=== PATIENT | male | born 1965 | race Caucasian/White ===

== ENCOUNTER 2025-08-28 13:14 | Inpatient (IN) | payer OTHER, SELFPAY ==
[2025-08-28 13:15] VITALS: BP 130/98; PULSE 102; RESP 18; TEMP 36.6; O2SAT 99; BMI 31.8
--- NOTE | 2025-08-28 15:17 | EDS_ITS ---
HPI History of Present Illness Chief Complaint: Substance Abuse Informant: patient Onset/Context/Timing Onset: Today Context: Gradual Onset Timing: Continuous Worsened by: Nothing Relieved by: Nothing Associated Symptoms Associated Symptoms: Negative for vomiting*, diarrhea*, fever*, rash*, seizure, tremor, palpatations, change in mental status, suicidal ideation or homicidal ideation Narrative Narrative: Patient presents requesting detox from alcohol. Patient states he drinks approximately 1 pint of vodka per day. Patient states his last drink was earlier today. Patient states he did drink a pint of vodka today. Patient states he went to detox approximately 14 months ago. Patient states that this was an inpatient 30-day detox. Patient states he started drinking again few months ago. Patient denies any suicidal or homicidal ideations. Patient denies any seizures or tremors. Patient denies any nausea or vomiting. Patient denies any fevers or chills. [facility] Medical History (Updated 08/28/25 @ 16:[address] Mauricio Rosales, DO) ETOH abuse Anxiety Home Medications ?Medication ?Instructions ?Recorded ?Last Taken ?Type NK 08/28/25 Unknown History Allergy/AdvReac Type Severity Reaction Status Date / Time No Known Allergies Allergy Verified 08/28/25 13:15 Surgical History no surgical history no surgical history Social History (Updated 08/28/25 @ 15:[address] Evelio Dodson, DO) Smoking Status: Unknown if ever smoked alcohol intake: current alcohol intake frequency: 3 or more drinks per day Alcohol type: hard liquor ROS ROS ED Constitutional Constitutional ED: Denies chills or fever(s) Eyes Eyes: Denies blurry vision or change in vision ENT ENT ED: Denies rhinorrhea or sore throat Cardiovascular Cardiovascular: Denies chest pain or palpitations Respiratory/Chest Respiratory/Chest: Denies cough or dyspnea Gastrointestinal Gastrointestinal: Denies nausea or vomiting Genitourinary Genitourinary ED: Denies dysuria or hematuria Musculoskeletal Musculoskeletal: Denies back pain or neck pain Integumentary Denies abscess or rash Neurologic Neurologic: Denies headache(s) or weakness Allergic/Immunologic Allergic/Immunologic ED: Denies mouth swelling or urticaria EXAM Physical Exam Const Vital Signs: 08/28/25 13:15 Temperature 97.8 F Temperature Source Oral Pulse Rate 102 H Respiratory Rate 18 Blood Pressure 130/98 H Blood Pressure Mean 108 Pulse Ox 99 Oxygen Delivery Method Room Air Positive well nourished and well developed General Appearance ED: well developed and NAD HEENT Reports moist mucous membranes atraumatic Neck supple and no JVD Resp normal respiratory effort and clear to auscultation bilaterally Cardio regular rate and regular rhythm GI soft to palpation, non-tender and non-distended Extremity General Extremety ED: Negative for edema or tenderness General Extremity: Negative for edema Neuro oriented x3, CN's II-XII intact bilaterally and no sensory deficits noted [place] Coma Scale: document GCS findings Spontaneous Obeys Commands Oriented 15 Sensorium / Orientation: alert Speech: speech normal Motor Exam: strength 5/5 throughout Psych mental status grossly normal and thought process normal MDM MDM MDM Narrative Medical decision making narrative: Medical screening labs will be obtained. CBC will be obtained to assess for leukocytosis and anemia. Comprehensive metabolic profile will be obtained to assess for hepatic function, renal function, and electrolyte abnormality. Serum alcohol level will be obtained to assess for alcohol intoxication. Urine drug screen will be obtained to assess for substance abuse. Lab Data Attestation: I reviewed the patient's lab results. Lab results narrative: CBC was reviewed and was essentially within normal limits. Comprehensive metabolic profile was reviewed and was essentially within normal limits. Serum alcohol level was reviewed and was elevated at 342. Urine drug screen was reviewed and was negative. Labs: Laboratory Results - last 24 hr 08/28/25 15:10 WBC 8.1 RBC 4.82 Hgb 16.0 Hct 47.0 MCV 97.5 H MCH 33.2 H MCHC 34.0 RDW Std Deviation 48.7 H RDW Coeff of Ayush 13.6 Plt Count TNP MPV TNP Immature Gran % (Auto) 0.200 Neut % (Auto) 48.4 Lymph % (Auto) 42.3 H Emmons % (Auto) 6.4 Eos % (Auto) 2.1 Baso % (Auto) 0.6 Absolute Neuts (auto) 3.9 Absolute Lymphs (auto) 3.44 Nucleated RBC % 0 Differential Comment SCANNED Platelet Estimate ADEQUATE Sodium 145 Potassium 4.2 Chloride 106 Carbon Dioxide 23.4 Anion Gap 15 BUN 12 Creatinine 0.76 Estim Creat Clear Calc 135.36 Est GFR (MDRD) Non-Af 105 BUN/Creatinine Ratio 16.0 Glucose 117 H Calcium 8.8 Total Bilirubin 0.47 AST 53 H ALT 37 Alkaline Phosphatase 65 Total Protein 7.7 Albumin 4.4 Globulin 3.3 Albumin/Globulin Ratio 1.3 Ethyl Alcohol 342.0 H* Management Discussion w/another healthcare provider: Hospitalist Treatment and Re-Evaluation Narrative: Case was discussed with hospitalist for admission. He will admit the patient to the MedSur floor. Patient understood and was agreeable with plan. All questions were answered. Discharge Plan Dx/Rx/DC Orders Clinical Impression: Alcohol withdrawal, Elevated blood pressure reading, Anxiety Disposition Disposition: Acute Care Hospital [facility] Discharge Date/Time: 08/28/25 16:31
[2025-08-28 15:22] LABS: Hematocrit 47.0 % (40-54); Hemoglobin 16.0 g/dL (13.0-16.5); Immature Granulocytes Count 0.020 X10^3/uL (0.0-0.0); Mean Corp Hgb Conc 34.0 g/dL (32-36); Mean Corpuscular Volume 97.5 fL (80-94); NRBC Flagged by Analyzer 0 % (0-5); POSITIVE COUNT YES; RBC Distribution Width CV 13.6 % (11.6-14.6); RBC Distribution Width SD 48.7 fl (35.1-43.9); Red Blood Count 4.82 M/mm3 (4.6-6.2); White Blood Count 8.1 K/mm3 (4.4-11.0)
--- NOTE | 2025-08-28 15:41 | HP.PCM.HOS_ITS ---
HPI - General General Date of Admission: 08/28/25 Date of Service: 08/28/25 Chief Complaint: Alcohol detox HPI Narrative KODY HUFF, is a 59 M who presented to [facility] ED on 08/28/2025 for alcohol detox. Patient has no significant past medical history, is not on any medications at home. He lives at home with his . He has gone through inpatient alcohol detox once approximately 14 months ago. He noted that this was a 30-day inpatient detox. He then began drinking again about 2 months ago. He drinks approximately 1 pint of vodka per day. Last drink was around noon today. Notes that he will begin to have worsening anxiety and restlessness about 12 hours after stopping drinking. He also will check his blood pressure intermittently at home and notes that his blood pressure will go up significantly if he does not drink but will be normal if he does. In the ED today he was normotensive and had mild sinus tachycardia to the 100s, was otherwise stable on room air at rest. CBC and BMP were benign. AST mildly elevated at 53, LFTs otherwise normal. Alcohol level 342. Given desire for detox, hospitalist contacted for admission. I saw the patient at bedside in the ED. Patient was sitting back comfortably in bed, conversing normally, in no acute distress. Patient was very pleasant with conversation and appeared to have good insight. 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 Notes his is very supportive. States he is very active, gets over 10,000 steps in daily and works out with resistance training 3 to 4 days/week. No other acute concerns currently. Will be admitted for further management. [facility] Medical History (Updated 08/28/25 @ 16:[address] Mauricio Rosales, DO) ETOH abuse Anxiety Home Medications ?Medication ?Instructions ?Recorded ?Last Taken ?Type NK 08/28/25 Unknown History Allergy/AdvReac Type Severity Reaction Status Date / Time No Known Allergies Allergy Verified 08/28/25 13:15 Surgical History no surgical history Social History (Updated 08/28/25 @ 15:[address] Evelio Dodson, DO) Smoking Status: Unknown if ever smoked alcohol intake: current alcohol intake frequency: 3 or more drinks per day Alcohol type: hard liquor ROS Constitutional Constitutional: Denies chills, fatigue or fever(s) Cardiovascular Cardiovascular: Denies chest pain Respiratory/Chest Respiratory/Chest: Denies shortness of breath at rest Gastrointestinal Gastrointestinal: Denies abdominal pain Musculoskeletal Musculoskeletal: Denies arthralgias or myalgias Neurologic Neurologic: Denies dizziness, focal weakness or headache(s) Psychiatric Psychiatric: Reports anxiety Vital Signs Vital Signs Vital Signs: 08/28/25 13:15 Temperature 97.8 F Temperature Source Oral Pulse Rate 102 H Respiratory Rate 18 Blood Pressure 130/98 H Blood Pressure Mean 108 Pulse Ox 99 Oxygen Delivery Method Room Air Weight Weight: 106.7 kg Body Mass Index (BMI) 31.8 Physical Exam Const alert, oriented x3 and no apparent distress Constitutional Narrative: Pleasant middle-age male, class I obesity, facial flushing noted, appears mildly intoxicated, otherwise sitting back comfortably in bed, answering questions appropriately, in no acute distress. General Appearance: cooperative and comfortable HEENT normocephalic, head/scalp atraumatic, hearing grossly normal bilaterally, nasal mucous membranes and turbinates normal and moist oral mucous membranes Eyes PERRL, EOMs intact bilaterally and conjunctivae normal Neck full ROM Chest inspection of chest normal Resp normal respiratory effort, normal air movement, no use of accessory muscles and clear to auscultation bilaterally Cardio regular rate, regular rhythm, no murmurs and peripheral pulses 2+ throughout GI normal to inspection, nondistended, normoactive bowel sounds, soft to palpation, non-tender and non-distended Back/Spine normal ROM Extremity normal to inspection, full ROM and no pedal edema Skin no rashes or lesions noted Psych mental status grossly normal Mood & Affect: anxious Results Lab / Micro Data 08/28/25 15:10 08/28/25 15:10 Assessment & Plan Assessment/Plan (1) Desire for detoxification: (2) ETOH abuse: PLAN: Plan Patient is a 59-year-old male who presented to [facility] ED on 08/28/2025 for alcohol detox. 1. Alcohol abuse with desire for detoxification ? Admit under inpatient status to [facility]. Case management consulted. Reports drinking 1 pint of vodka daily. Last drink was a few hours prior to admission. Alcohol level 342. Reports going through 30-day inpatient detox in the past but was not clear if he was given any medications to help with withdrawal symptoms. Discussed with patient and he is agreeable to treatment with phenobarbital taper. Phenobarbital taper and other as needed medications ordered per alcohol withdrawal order set. Appreciate case management assistance for discharge planning. 2. Anxiety ? Patient reports significant anxiety and restlessness at times over the past few years. Seems most consistent with anxiety secondary to alcohol withdrawal but there may be some underlying generalized anxiety as well. He has never been on medication for anxiety and never seen counseling in the past. Treatment as above while inpatient. Recommend outpatient follow-up with PCP for this on discharge. 3. Elevated AST level ? Mildly elevated AST level of 53 on admit. LFTs otherwise normal. No abdominal pain noted. Presume secondary to mild alcoholic hepatitis. No further inpatient needs, recommend outpatient follow-up with PCP on discharge. DVT prophylaxis: Lovenox CODE STATUS: Full code, verified Expected disposition: TBD Total clinical time spent by myself addressing the patient's medical issues, reviewing all the data, and collaborating with patient's care team: 57 minutes. Charges/Coding Visit Charges Inpatient E&M: 68986 Init Hosp L2
[2025-08-28 15:43] LABS: AST(SGOT) 53 U/L (<=37); Alanine Aminotransfer ALT/SGPT 37 U/L (<=46); Albumin, Serum 4.4 g/dL (3.5-5.0); Alkaline Phosphatase 65 U/L (40-129); Anion Gap 15 (5-15); BUN 12 mg/dL (4-19); BUN/Creat Ratio 16.0 RATIO (10-20); Calcium,Total 8.8 mg/dL (7.6-11.0); Carbon Dioxide 23.4 mmol/L (21.0-32.0); Chloride 106 mmol/L (98-108); Differential Indicated SCAN CRITERIA MET; Estimated Creatinine Clearance 135.36 ml/min (50-250); Globulin 3.3 g/dL (2.2-4.2); Glucose 117 mg/dL (70-99); Potassium 4.2 mmol/L (3.3-5.1)
[2025-08-28 16:02] LABS: Alcohol, Blood (Medical)-Serum 342.0 mg/dL (<=10.0)
[2025-08-28 16:11] VITALS: BP 128/87; PULSE 97; RESP 16; TEMP 36.6; O2SAT 99
[2025-08-28 16:45] VITALS: RESP 18; BMI 30.2
[2025-08-28 16:49] VITALS: BP 179/96; PULSE 104; RESP 18; TEMP 36.7; O2SAT 98
[2025-08-28] MEDS: hydrOXYzine PAM 25 MG Capsule 50 MG PO (17:28)
[2025-08-28 18:14] LABS: Barbiturate Urine NEGATIVE (< 200 ng/mL); Benzodiazepine Urine NEGATIVE (< 200 ng/mL); PCP Urine NEGATIVE (< 25 ng/mL); THC Urine NEGATIVE (< 50 ng/mL)
[2025-08-28 18:16] LABS: Differential Comment SCANNED
[2025-08-28 20:30] VITALS: BP 145/70; PULSE 99; RESP 20; TEMP 36.6; O2SAT 97
--- NOTE | 2025-08-28 20:58 | PCM.HOSP.N ---
Hospitalist Note Patient moderately anxious, thinking about leaving. CIWA 8. Having already received his PRN Vistaril and gabapentin at 1728, nursing administered his trazodone to help him sleep. He states that if he can just go to sleep, he will stay. I ordered lorazepam 1 mg p.o. x 1 now and melatonin 10 mg p.o. nightly PRN sleep.
[2025-08-28] MEDS: MELATONIN 10 MG TABLET PO (21:06)
[2025-08-28] MEDS: 0.9% Saline Lock 10 ML Syringe IV (21:07)
[2025-08-29 00:54] VITALS: BP 123/69; PULSE 94; RESP 18; TEMP 36.4; O2SAT 93
[2025-08-29] MEDS: hydrOXYzine PAM 25 MG Capsule 50 MG PO (00:59)
[2025-08-29 05:03] VITALS: BP 108/59; PULSE 82; RESP 18; TEMP 36.6; O2SAT 94
[2025-08-29 08:59] VITALS: BP 134/91; PULSE 75; RESP 17; TEMP 36.1; O2SAT 100
[2025-08-29] MEDS: Thiamine Hydrochloride 100 MG Tablet PO (09:13)
--- NOTE | 2025-08-29 09:44 | PN.HOSP_ITS ---
Subjective Subjective CIWA score of 0 Objective Data Objective Data Vital Signs: Vital Signs Temp Pulse Resp BP Pulse Ox O2 Del Method 97.0 F L 75 17 134/91 H 100 Room Air 08/29/25 08:59 08/29/25 08:59 08/29/25 08:59 08/29/25 08:59 08/29/25 08:59 08/29/25 08:59 Oxygen Delivery Method Room Air Weight: 235 lb 14.314 oz Body Mass Index (BMI) 30.2 Intake & Output: Intake and Output for Last 24 Hours 08/28/25 08/29/25 08/30/25 03:59 03:59 03:59 Intake Total 1070 / 1070 420 / 420 Balance 1070 / 1070 420 / 420 Lab / Micro Data 08/28/25 15:10 08/28/25 15:10 Labs: Laboratory Results - last 24 hr 08/28/25 15:10: WBC 8.1, RBC 4.82, Hgb 16.0, Hct 47.0, MCV 97.5 H, MCH 33.2 H, MCHC 34.0, RDW Std Deviation 48.7 H, RDW Coeff of Ayush 13.6, Plt Count TNP, MPV TNP, Immature Gran % (Auto) 0.200, Neut % (Auto) 48.4, Lymph % (Auto) 42.3 H, [place] % (Auto) 6.4, Eos % (Auto) 2.1, Baso % (Auto) 0.6, Absolute Neuts (auto) 3.9, Absolute Lymphs (auto) 3.44, Nucleated RBC % 0, Differential Comment SCANNED, Platelet Estimate ADEQUATE, Sodium 145, Potassium 4.2, Chloride 106, Carbon Dioxide 23.4, Anion Gap 15, BUN 12, Creatinine 0.76, Estim Creat Clear Calc 135.36, Est GFR (MDRD) Non-Af 105, BUN/Creatinine Ratio 16.0, Glucose 117 H , Calcium 8.8, Total Bilirubin 0.47, AST 53 H, ALT 37, Alkaline Phosphatase 65, Total Protein 7.7, Albumin 4.4, Globulin 3.3, Albumin/Globulin Ratio 1.3, Ethyl Alcohol 342.0 H* 08/28/25 17:04: Urine Opiates Screen NEGATIVE, U Buprenorphine Qual NEGATIVE, Ur Oxycodone Screen NEGATIVE, Urine Methadone Screen NEGATIVE, Urine Fentanyl Screen NEGATIVE, Ur Barbiturates Screen NEGATIVE, Ur Phencyclidine Scrn NEGATIVE, Ur Amphetamines Screen NEGATIVE, U Benzodiazepines Scrn NEGATIVE, Urine Cocaine Screen NEGATIVE, U Cannabinoids Screen NEGATIVE Physical Exam Narrative General: Alert, Oriented x3, Cooperative, No apparent distress HEENT: Atraumatic, PERRLA, EOMI, Normocephalic Oral: Moist Mucosa Neck: Supple, No JVD Lungs: Clear to auscultation, Normal air movement, No rhonchi, No wheeze, No rales Cardiovascular: Regular rate, Regular Rhythm, Normal S1, Normal S2, No murmurs Abdomen: Soft, Non Tender, Non-Distended, No Hepato-splenomegaly Extremities: No edema, Capillary Refill Less than 3 Seconds Skin: No rashes, No breakdown Musculoskeletal: No Tenderness to Palpation of Joints or Extremities Neurological: No focal neurological deficits, moves all extremities, sensation intact Psych/Mental Status: Normal Affect, Appropriate Assessment & Plan Assessment/Plan (1) Desire for detoxification: (2) ETOH abuse: PLAN: Plan 1. Alcohol withdrawal requesting detox ? Continue with the alcohol withdrawal protocol ? Will have him follow-up with 180 to develop a discharge plan, may be a candidate for Vivitrol ? LFTs were slightly elevated with an AST of 53 on admission likely related to the alcohol no further intervention at this time DVT: Ambulation Charges/Coding Visit Charges Inpatient E&M: 07636 Subs Hosp L2
--- NOTE | 2025-08-29 14:17 | ADDICTION ---
This typewriters functional tester met with PT to conduct ASAM, MSE, and AUDIT assessments and to plan for d/c. PT A+Ox4 and participated actively. All assessments completed and placed in PT's chart. PT initially stated he was going to follow up with [facility] for outpatient services, though after TW spoke with pt's , pt intents to f/u with [facility] for outpatient treatment services. Pt expressed interest in receiving Vivitro shot but would like time to consider. Pt was screened and assessed for the Vivitrol shot. He meets criteria and if agreeable, would receive injection before discharge. He will have follow up injections at [facility]. Pt's , Judy, to provide transportation. TW spoke with pt's , Judy, and was advised that she will schedule pt for an appt for outpatient counseling services on Sunday08/31/25 with pt's preferred provider and agreeable to transporting pt home.
[2025-08-29 14:30] VITALS: BP 139/82; PULSE 78; RESP 17; TEMP 36.8; O2SAT 97
[2025-08-29 20:11] VITALS: BP 155/95; PULSE 74; RESP 18; TEMP 36.4; O2SAT 97
[2025-08-30 01:56] VITALS: BP 126/80; PULSE 75; RESP 18; TEMP 36.4; O2SAT 97
[2025-08-30] MEDS: Thiamine Hydrochloride 100 MG Tablet PO (08:11)
[2025-08-30 08:13] VITALS: BP 163/117; PULSE 88; RESP 18; TEMP 36.7; O2SAT 96
--- NOTE | 2025-08-30 09:23 | DCINST_ITS ---
Discharge Instructions DC O2, CPAP, BIPAP needs Home O2 Discharge instructions: No Dressing / Incision Discharge Activity: Return to Normal Activity Dressing / Incision Call your doctor if you observe: Fever of 101 or Higher, Shortness of breath, Dizziness, Fainting spells, Swelling in the ankles, Chest pain and Increased palpitations (irregular heartbeat) Follow Up Care Test Results: Test results from this visit will be discussed in further detail at your follow- up appointment, if applicable. Discharge Plan Admission Admit Date/Time: 08/28/25 15:41 Attending Provider: Enrike Leigh Primary Care Provider: Grabiel Trimble Jr. Consulting Providers: Mauricio Rosales Discharge Orders/Prescriptions Prescriptions: No Action NK Referrals / Follow Up: Grabiel Trimble Jr. PA [Primary Care Provider, Medical] - Within 1 Week Disposition Disposition (needs filled in before D/C Order can be placed): Home, Self Care
[2025-08-30 10:10] VITALS: BP 180/111
--- NOTE | 2025-08-30 13:53 | DS.PCM_ITS ---
Providers Date of Admission: 08/28/25 Primary Care Physician: Dr. Grabiel Trimble Jr., PA Reason For Visit: ALCOHOL DETOX Diagnosis Discharge Diagnosis (1) Desire for detoxification: Status: Acute (2) ETOH abuse: Status: Acute Code(s): F10.10 - Alcohol abuse, uncomplicated Medications at Discharge Home Medications NK 08/28/25 Hospital Course Operations None Procedures None Summary of Care Provided Minutes Spent on Discharge: 40 Hospital Course: Per HPI: KODY HUFF, is a 59 M who presented to [facility] ED on 08/28/2025 for alcohol detox. Patient has no significant past medical history, is not on any medications at home. He lives at home with his . He has gone through inpatient alcohol detox once approximately 14 months ago. He noted that this was a 30-day inpatient detox. He then began drinking again about 2 months ago. He drinks approximately 1 pint of vodka per day. Last drink was around noon today. Notes that he will begin to have worsening anxiety and restlessness about 12 hours after stopping drinking. He also will check his blood pressure intermittently at home and notes that his blood pressure will go up significantly if he does not drink but will be normal if he does. In the ED today he was normotensive and had mild sinus tachycardia to the 100s, was otherwise stable on room air at rest. CBC and BMP were benign. AST mildly elevated at 53, LFTs otherwise normal. Alcohol level 342. Given desire for detox, hospitalist contacted for admission. I saw the patient at bedside in the ED. Patient was sitting back comfortably in bed, conversing normally, in no acute distress. Patient was very pleasant with conversation and appeared to have good insight. 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 Notes his is very supportive. States he is very active, gets over 10,000 steps in daily and works out with resistance training 3 to 4 days/week. No other acute concerns currently. Will be admitted for further management. Hospital Course: 1. Alcohol withdrawal?59-year-old male presented to the hospital questing detox from alcohol. He started drinking about a month prior to coming into the hospital. He has gone through rehab inpatientin the past for his drinking. He met with 180 and would like to proceed with outpatient therapy. He says that his doctor had given him a prescription for naltrexone at home and he does not want to go through the Vivitrol here in the hospital prior to discharge. He was little bit hypertensive though he states that he has medications for this at home that he was given by his primary care doctor as needed and he does check his blood pressure at home. He states that whenever he goes through withdrawal he does have a spike in his blood pressure. We discussed the plan for discharge and he expressed understanding of the risks and benefits of going home today and he would like to go home. He will need to follow-up with his PCP in 3 to 5 days to monitor his blood pressure, if he is not back down to normal then I would recommend initiating chronic therapy. Of note his LFTs were also very slightly elevated would recommend outpatient monitoring for this as well. Physical Exam Narrative General: Alert, Oriented x3, Cooperative, No apparent distress HEENT: Atraumatic, PERRLA, EOMI, Normocephalic Oral: Moist Mucosa Neck: Supple, No JVD Lungs: Clear to auscultation, Normal air movement, No rhonchi, No wheeze, No rales Cardiovascular: Regular rate, Regular Rhythm, Normal S1, Normal S2, No murmurs Abdomen: Soft, Non Tender, Non-Distended, No Hepato-splenomegaly Extremities: No edema, Capillary Refill Less than 3 Seconds Skin: No rashes, No breakdown Musculoskeletal: No Tenderness to Palpation of Joints or Extremities Neurological: No focal neurological deficits, moves all extremities, sensation intact Psych/Mental Status: Normal Affect, Appropriate Weight / BMI Weight Weight: 235 lb 14.314 oz Body Mass Index (BMI) 30.2 ABG / Lab / Microbiology Data 08/28/25 15:10 08/28/25 15:10 D/C Instructions Call your doctor if you observe: Fever of 101 or Higher, Shortness of breath, Dizziness, Fainting spells, Swelling in the ankles, Chest pain and Increased palpitations (irregular heartbeat) DC O2, CPAP, BIPAP Needs Home O2 Discharge instructions: No Meaningful Use Info Meaningful Use Meaningful Use Diagnoses (Choose all that apply): None applicable Discharge Plan Admission Admit Date/Time: 08/28/25 15:41 Attending Provider: Enrike Leigh Primary Care Provider: Grabiel Trimble Jr. Consulting Providers: Mauricio Rosales Discharge Orders/Prescriptions Prescriptions: No Action NK Referrals / Follow Up: Grabiel Trimble Jr. PA [Primary Care Provider, Medical] - Within 1 Week Disposition Disposition (needs filled in before D/C Order can be placed): Home, Self Care Charges/Coding Visit Charges Inpatient E&M: 56768 Disch Hosp >30min
== END 2025-08-30 10:20 | disposition home or self-care (01) | DRG 897 ==
LOC: ED 16:03 → MS3 16:09
PROVIDERS: Admitting Provider Hospitalist; Emergency Provider Emergency Medicine; PCP Physician Assistant; Visit Provider Family Medicine
DX: F10.139 Alcohol abuse with withdrawal, unspecified (principal); E66.811 Obesity, class 1; Z68.31 Body mass index [BMI] 31.0-31.9, adult; Y90.8 Blood alcohol level of 240 mg/100 ml or more
CPT/HCPCS: 80053; 80307; 82077; 85025; 99284; A4216